=== PATIENT | female | born 1970 | race Caucasian/White ===

== ENCOUNTER 2019-06-22 09:05 | Outpatient (CLI) | payer OTHER ==
[2019-06-22 15:09] LABS: #Lymphocytes 2.8 thou/uL (1.20-3.40); #Monocytes 0.8 thou/uL (0.11-0.59); #Neutrophils 4.3 thou/uL (1.40-6.50); %Basophils 0.4 % (0.0-1.0); %Eosinophils 0.1 % (0.0-10.0); %Monocytes 10.3 % (0.0-10.0); %Neutrophils 54.1 % (42.0-75.0); Hemoglobin 14.1 g/dL (12.0-16.0); Mean Corpuscular Hemoglobin 30.8 pg (27.0-31.0); Mean Corpuscular Volume 90.6 fL (78.0-98.0); Mean Platelet Volume 7.3 fL (7.4-10.4); Platelet Count 239 thou/uL (130-400); RBC Distribution Width 14.3 % (11.5-14.5); Red Blood Cell (RBC) Count 4.59 mill/uL (4.20-5.40); White Blood Cell (WBC) Count 7.9 thou/uL (4.8-10.8)
[2019-06-22 15:11] LABS: Bilirubin Negative (Negative); Blood, Urine Negative (Negative); Clarity Clear (Clear); Glucose, Urine (Dipstick) Normal (Negative); Leukocyte Negative Leu/uL (Negative); Nitrite Negative (Negative); Protein, Urine (Dipstick) Negative (Neg-Trace); RBC/HPF 0-3 HPF (0-3); Squamous Epithelial 0-3 HPF (0-3); Urobilinogen Normal mg/dL (Less than 2); WBC/HPF None Seen HPF (0-3)
[2019-06-22 15:14] LABS: Bacteria/HPF 1+ HPF (None Seen)
[2019-06-22 15:29] LABS: Anion Gap 13 mmol/L (10-20); BUN (Urea Nitrogen) 9 mg/dL (7.0-18.7); Calc. Creatinine Clearance 0 mL/min (70-130); Calcium 9.3 mg/dL (7.8-10.44); Carbon Dioxide 24 mmol/L (22-29); Chloride 107 mmol/L (98-107); Estimated GFR-MDRD 72; Glucose 79 mg/dL (70-105); Potassium 4.6 mmol/L (3.5-5.1); Sodium 139 mmol/L (136-145)
--- NOTE | 2019-06-22 18:01 | EKG ---
Test Reason : Blood Pressure : / mmHG Vent. Rate : 088 BPM Atrial Rate : 088 BPM P-R Int : 172 ms QRS Dur : 092 ms QT Int : 396 ms P-R-T Axes : 082 091 074 degrees QTc Int : 479 ms Normal sinus rhythm Rightward axis Anteroseptal infarct , age undetermined Abnormal ECG No previous ECGs available Confirmed by Mitra MUNIZ ([id number]) on 06/22/2019 6:00:29 PM Referred By: RENARD Confirmed By:Mitra MUNIZ
== END 2019-06-22 09:06 | disposition home or self-care (01) ==
LOC: LABBT 09:05
PROVIDERS: ATTEND Orthopaedic Surgery Hand Surgery
DX: Z01.818 Encounter for other preprocedural examination (principal); M19.042 Primary osteoarthritis, left hand
CPT/HCPCS: 80048; 81001; 85025; 93005; 93010

== ENCOUNTER 2019-10-10 13:27 | Outpatient (CLI) | payer OTHER ==
--- NOTE | 2019-10-10 15:34 | MRI ---
MRI OF THE LEFT INDEX FINGER WITHOUT IV CONTRAST: INDICATION: A 49-year-old female with left index finger pain the knuckle since 2017 without a history of trauma o r surgery. COMPARISON: None. TECHNIQUE: No marrow signal abnormality is seen involving the left index finger. The collateral ligaments are i ntact. The flexor and extensor tendons are intact. The volar plates of the MCP, PIP, and DIP joints are intact. There is no evidence of flexor tendon bowstringing. No tenosynovitis is evident. The intrinsic hand musculature appears within normal limits. There is moderate to severe 1st CMC osteoar throsis with subchondral cyst-like abnormalities involving the base of the thumb metacarpal. There i s an 8 mm periarticular ganglion extending off the palmar aspect of the thumb 1st CMC joint on image 13 of series 7 and image 44 of series 50. IMPRESSION: 1. No evidence of a joint effusion or capsular injury involving the left index finger. No tenosynov itis demonstrated. 2. Moderate to severe osteoarthritis of the thumb carpometacarpal joint with associated periarticula r ganglion. POS: [facility]
--- NOTE | 2019-10-10 16:25 | MRI ---
MRI OF THE LEFT WRIST WITH AND WITHOUT IV CONTRAST: 10/10/19 INDICATION: Left wrist ganglion and left wrist palpable abnormality with history of arthritis and numbness in bot h hands. CONTRAST: 18 mL of Multihance. TECHNIQUE: Surface marker was placed within the palpable region of interest. Multiplanar and multisequence MR im ages were obtained of the left wrist with and without contrast. FINDINGS: There is moderate to severe first CMC osteoarthrosis with prominent subchondral cyst-like abnormality involving the base of the thumb metacarpal. No abnormal region of enhancement is demonstrated. There is a periarticular ganglion seen extending off the volar aspect of the first CMC joint measuring dimitri roximately 0.8 x 1.1 cm in size and is best seen on images 12 and 13 of series 12. Within the region of the surface marker placed along the radial aspect of the radiocarpal joint is a 2.0 x 1.1 x 1.1 cm periarticular ganglion extending off the volar aspect of the radiocarpal joint. Th is is best seen on image 11, series 12. The TFC is intact. The scapholunate and lunatotriquetral ligaments are intact. The extrinsic ligament s are intact. The extensor tendons are intact. There is mild ECU tendinosis. The FCR tendon demonstra drea a mild amount of fluid distention of the tendon sheath. The FCU, FDS and FDP tendons are intact. The median nerve is normal appearing. The ulnar neurovasculature appears within normal limits. IMPRESSION: 1. Moderate to severe first CMC joint osteoarthrosis with a prominent volar periarticular gangli on. 2. Volar radial ganglion off the radiocarpal joint corresponds to the palpable region of interes t. 3. Mild FCR tenosynovitis. 4. Mild ECU tendinosis. POS: [facility]
== END 2019-10-10 13:28 | disposition home or self-care (01) ==
LOC: BICMRI 13:27
PROVIDERS: ATTEND Orthopaedic Surgery Hand Surgery
DX: M77.9 Enthesopathy, unspecified (principal); M67.432 Ganglion, left wrist; M18.12 Unilateral primary osteoarthritis of first carpometacarpal joint, left hand; M65.842 Other synovitis and tenosynovitis, left hand
CPT/HCPCS: 82565

== ENCOUNTER 2019-12-04 06:19 | Outpatient (CLI) | payer OTHER ==
[2019-12-04 14:43] LABS: #Basophils 0.1 thou/uL (0.0-0.2); #Lymphocytes 2.8 thou/uL (1.20-3.40); #Monocytes 0.9 thou/uL (0.11-0.59); #Neutrophils 4.1 thou/uL (1.40-6.50); %Basophils 0.7 % (0.0-1.0); %Lymphocytes 35.7 % (21.0-51.0); %Monocytes 11.1 % (0.0-10.0); %Neutrophils 52.5 % (42.0-75.0); Hemoglobin 15.8 g/dL (12.0-16.0); Mean Corpuscular HGB CONC 32.1 g/dL (32.0-36.0); Mean Corpuscular Hemoglobin 30.5 pg (27.0-31.0); Mean Platelet Volume 7.9 fL (7.4-10.4); Platelet Count 290 thou/uL (130-400); RBC Distribution Width 16.6 % (11.5-14.5); Red Blood Cell (RBC) Count 5.18 mill/uL (4.20-5.40); White Blood Cell (WBC) Count 7.9 thou/uL (4.8-10.8)
[2019-12-04 14:49] LABS: Bacteria/HPF 2+ HPF (None Seen); Bilirubin Negative (Negative); Blood, Urine 2+ (Negative); Clarity Clear (Clear); Glucose, Urine (Dipstick) Normal (Negative); Leukocyte Negative Leu/uL (Negative); Mucous/LPF 1+ LPF (<2+); Nitrite Negative (Negative); Protein, Urine (Dipstick) 20 mg/dL (Neg-Trace); RBC/HPF 0-3 HPF (0-3); WBC/HPF 0-3 HPF (0-3)
[2019-12-04 15:02] LABS: Anion Gap 14 mmol/L (10-20); BUN (Urea Nitrogen) 12 mg/dL (7.0-18.7); Calc. Creatinine Clearance 0 mL/min (70-130); Calcium 9.8 mg/dL (7.8-10.44); Carbon Dioxide 20 mmol/L (22-29); Chloride 109 mmol/L (98-107); Estimated GFR-MDRD 67; Glucose 75 mg/dL (70-105); Potassium 4.1 mmol/L (3.5-5.1); Sodium 139 mmol/L (136-145)
[2019-12-04 18:48] LABS: SARS-CoV-2 MS2 Positive; SARS-CoV-2 N Gene Negative; SARS-CoV-2 S Gene Negative; SARS-CoV-2 orf1ab Negative
--- NOTE | 2019-12-04 21:14 | EKG ---
Test Reason : Blood Pressure : / mmHG Vent. Rate : 090 BPM Atrial Rate : 090 BPM P-R Int : 170 ms QRS Dur : 090 ms QT Int : 380 ms P-R-T Axes : 081 087 022 degrees QTc Int : 464 ms Normal sinus rhythm Septal infarct (cited on or before 22-JUN-2019) T wave abnormality, consider inferior ischemia Abnormal ECG When compared with ECG of 22-JUN-2019 14:29, Inverted T waves have replaced nonspecific T wave abnormality in Inferior leads Confirmed by Mitra MUNIZ ([id number]) on 12/04/2019 9:14:15 PM Referred By: RENARD Confirmed By:Mitra MUNIZ
== END 2019-12-04 06:20 | disposition home or self-care (01) ==
LOC: LABBT 06:19
PROVIDERS: ATTEND Orthopaedic Surgery Hand Surgery
DX: Z01.818 Encounter for other preprocedural examination (principal); Z11.59 Encounter for screening for other viral diseases; M18.12 Unilateral primary osteoarthritis of first carpometacarpal joint, left hand
CPT/HCPCS: 80048; 81001; 85025; 87635; 93005; 93010; U0003

== ENCOUNTER 2019-12-07 11:06 | Day surgery (SDC) | payer OTHER ==
[2019-12-04 12:21] VITALS: BMI 34.5
[2019-12-07] MEDS ORDERED: Midazolam HCl 2 mg/2 ml Vial ONE ×2 (12:51→16:12)
[2019-12-07] MEDS ORDERED: Fentanyl 100 MCG/2 ML VIAL ONE ×2 (12:51→16:12)
[2019-12-07] MEDS ORDERED: Vancomycin 1 GM/200 ML BAG ONE (13:37)
[2019-12-07] MEDS ORDERED: Dexamethasone 20 MG/5 ML VIAL ONE (14:06)
[2019-12-07] MEDS ORDERED: Lidocaine 1% PF 5 ML VIAL ONE (14:06)
[2019-12-07] MEDS ORDERED: Ondansetron PF 4 MG/2 ML Vial ONE (14:06)
[2019-12-07] MEDS ORDERED: Bupivacaine HCl 0.5%/Epinephrine 1:200,000/PF 30 ml Vial ONE (15:43)
[2019-12-07] MEDS ORDERED: Bupivacaine PF 0.5% 30 ML VIAL ONE (16:03)
[2019-12-07] MEDS ORDERED: Bacitracin Zinc Ointment 30 gm TUBE ONE (16:03)
[2019-12-07] MEDS ORDERED: Betamet Acet/Betamet Na Ph 30 MG/5 ML VIAL ONE (16:03)
[2019-12-07] MEDS ORDERED: Sodium Chloride 0.9% 0 ML ONE (16:05)
[2019-12-07] MEDS ORDERED: HYDROcodone/Acetaminophen 7.5/325 mg Tablet ONE (20:19)
--- NOTE | 2019-12-09 06:40 | OP ---
DATE OF PROCEDURE: 12/07/2019 PREOPERATIVE DIAGNOSES: 1. Left thumb carpometacarpal joint severe osteoarthritis. 2. Left radiocarpal ganglion with synovitis left wrist and possible scaphotrapezium. 3. Scaphotrapezial joint ganglion. POSTOPERATIVE DIAGNOSES: 1. Ganglion almost 2 x 1 cm over the left volar radiocarpal joint with left radiocarpal synovitis. 2. Thinning of the joint capsule over the volar scaphotrapezium joint, but no true ganglion seen today. 3. 80% osteoarthritic involved with marked osteophytes off the trapezium and the base of the thumb. PROCEDURE PERFORMED: 1. Left wrist volar ganglion excision with arthrotomy. 2. Left wrist synovectomy, scaphotrapezial joint and radiocarpal joint. 3. C-arm supervision. 4. Left wrist ligament replacement with tendon interposition, total trapeziectomy, flexor carpi radialis 1/2 radial harvested for transfer into the ligament replacement tendon position construct. TOURNIQUET TIME: Total 105 minutes, 20 minutes for the ganglion, then deflated to close the incision and then 85 minutes for the ligament replacement tendon in position for procedure. COMPLICATIONS: None. Also note, C-arm was used during the case. SPECIMEN: 2 x 1 cm ganglion. DESCRIPTION OF PROCEDURE: After successful block anesthesia performed by the [facility] An[facility], and a time-out identification, the left upper extremity was identified, underwent prepping and draping and the limb was exsanguinated after outlining a standard curvilinear J-shaped hockey stick incision for approach to the volar carpometacarpal joint and connecting that to a zigzag 2.5 cm volar approach to the radiocarpal joint just radial to the FCR. The FCR incision was entered, carried through skin and subcutaneous tissue, identified the FCR, and just radial to it, approximately 2 cm proximal to the scaphoid was a ganglion. The ganglion was deep to the bed of flexor carpi radialis, we identified the radial artery where it had a common wall, this under magnification and then dissected it back to the radiocarpal joint volarly. We then entered the scaphoradial joint, found the ganglion stalk, its sac was deflated, but almost 2 cm long. We then removed it by making a 5 mm arthrotomy and immediately through this, synovitis escaped, so performed a synovectomy of the volar scaphoradial joint. We then deflated the tourniquet, obtained hemostasis, closed the deep capsule portion, closed the bed of the FCR and then left the FCR exposed for later utilization for harvesting of the tendon for the ligament replacement part and tendon interposition of the CMC arthroplasty. We then reinflated the tourniquet after exsanguinated the limb to 250 mmHg pressure. The J-shaped hockey stick incision was then entered, carried through skin and subcutaneous tissue. We dissected free the radial nerve bundle versus the median nerve area. We then elevated the thenar muscle at the musculotendinous junction off the base of the thumb metacarpal, leaving a 3 mm area intact on the metacarpophalangeal closure. We identified the abductor pollicis longus, then entered the carpometacarpal joint of the thumb through the capsule here. We then made a large capsular flap both radially and ulnarly, tagged this with a 2-0 undyed Vicryl, and then first dissected the entire capsule off the radial side of the trapezium. We then placed a guidewire in the center of the trapezium frontal sagittal plane, it was threaded. We used C-arm to identify appropriate depth and then used it as a joystick to help us do a complete capsulotomy. When we got to the ulnar side of the volar carpometacarpal joint, we then identified the flexor carpi radialis, protected it, freed it from the ulnar wall of the trapezium and then while it was completely retracted and safe, we released the scaphotrapezial trapezoid joint capsule. We then elevated the remainder portion and removed the trapezium en vee. 85% of the trapezial surface and 80% of the articular surface base of thumb was arthritic. We removed osteophytes on both the radial and ulnar aspect including the deep palmar capsule portion of the base of the thumb. We then placed a heavy 3-0 Prolene in the deep ulnar aspect of the base of the thumb for later use in the anchovy portion of the tendon interposition. At this time, we then drilled a 2.5 guidewire from the lateral wall of the base of the thumb, with the thumb metacarpal and nail bed rotated parallel to the table for appropriate orientation, obliquely into the junction of the chondral surface with the base of the metacarpal metaphysis and then entered the canal again with a 3.5 drill bit. Then, we harvested 1/2 of the flexor carpi radialis tendon, because it was quite large, especially for a woman of this size, measuring almost 7 mm in diameter. We then were able to pass this 1/2 safely through the tunnel and then using appropriate tension and reduction, nearly anatomically using repositioning [place] lines of the inner metacarpal bases, we then pinned with a 1.25 mm K-wire the first metacarpal to the second metacarpal parallel to it, but not entering the tunnel for the tendon. We then held the tendon in appropriate tension, sutured it x4; two to the sidewall of the base of the metacarpal before we passed it under the abductor pollicis longus and then 2 to the abductor pollicis longus after passed on appropriate tension. We then placed 2 sutures into the metacarpal base, and then we performed an anchovy weave with the remainder portion of tendon to give a good tendon position with 3-0 Prolene. Once this was done, we released the tourniquet. C-arm confirmed position of the K-wire, we cut it with 1 mm protruding through the skin. We obtained hemostasis. We then closed the capsule using 2-0 Vicryl undyed in a simple pattern, repaired and brought the thenar musculature back to its origin with the same 2-0 Vicryl in an undyed with [id number] interrupted, and then closed the deep dermis with a running 4-0 Monocryl after obtaining hemostasis. All incisions at the epidermis were then closed with interrupted 4-0 nylon in a mattress pattern and the patient left the operating room without evidence of anesthetic or operative complication with pink thumb and a splint, thumb spica up to the level of the junction of the mid and proximal third of the forearm. Job ID: [id number]
== END 2019-12-07 21:00 | disposition home or self-care (01) ==
LOC: SDC 11:06
PROVIDERS: ATTEND Orthopaedic Surgery Hand Surgery
PROC: 0LB60ZZ Excision of Left Lower Arm and Wrist Tendon, Open Approach (ICD-10-PCS; principal; 2019-12-07)
PROC: 0RUP07Z Supplement Left Wrist Joint with Autologous Tissue Substitute, Open Approach (ICD-10-PCS; principal; 2019-12-07)
PROC: 0LU607Z Supplement Left Lower Arm and Wrist Tendon with Autologous Tissue Substitute, Open Approach (ICD-10-PCS; principal; 2019-12-07)
DX: M18.12 Unilateral primary osteoarthritis of first carpometacarpal joint, left hand (principal); M67.432 Ganglion, left wrist; M65.88 Other synovitis and tenosynovitis, other site; F17.200 Nicotine dependence, unspecified, uncomplicated; E78.00 Pure hypercholesterolemia, unspecified; I10 Essential (primary) hypertension; F32.9 Major depressive disorder, single episode, unspecified; E07.9 Disorder of thyroid, unspecified; F41.9 Anxiety disorder, unspecified; Z79.02 Long term (current) use of antithrombotics/antiplatelets; Z79.2 Long term (current) use of antibiotics; Z79.899 Other long term (current) drug therapy; Z88.1 Allergy status to other antibiotic agents; Z88.5 Allergy status to narcotic agent; Z88.6 Allergy status to analgesic agent; Z88.8 Allergy status to other drugs, medicaments and biological substances; Z95.1 Presence of aortocoronary bypass graft
CPT/HCPCS: 88304; J0670; J0702; J1100; J2001; J2250; J2405; J3010; J3370; S0020